=== PATIENT | female | born 1965 | race Hispanic/Latino ===

== ENCOUNTER 2021-08-27 12:44 | Emergency (ER) | payer SELFPAY ==
[2021-08-27 13:07] VITALS: BP 133/87; PULSE 89; RESP 18; TEMP 36.7; O2SAT 99
--- NOTE | 2021-08-27 14:01 | ED.URI ---
HPI - URI/Sore Throat General Chief Complaint: Upper Respiratory Infection Stated Complaint: Cough, Sore throat Time Seen by Provider: 08/27/21 14:01 Source: patient Mode of arrival: ambulatory Limitations: no limitations History of Present Illness HPI Narrative: Dayami Eisenberg is a 55-year-old female with a history of orthopedic type cancer, COPD , GERD, who has had symptoms for over a week and states she has subjective fever at night with increased coughing. Patient was told she cannot take the Covid vaccine due to her cancer history Related Data Home Medications Medication Instructions Recorded Confirmed Bentyl 08/27/21 Claritin 08/27/21 Flonase 08/27/21 Prevacid 08/27/21 Spiriva Respimat 08/27/21 Allergies Allergy/AdvReac Type Severity Reaction Status Date / Time No Known Allergies Allergy Verified 08/27/21 13:28 Review of Systems Review of Systems: CONSTITUTIONAL: Denies fever, chills, sweats. EYES: Denies visual changes, redness, discharge. ENT: Has rhinorrhea, has congestion, has sore throat, otalgia. Sore on right side of tongue CARDIOVASCULAR: Denies chest pain, palpitations, edema. RESPIRATORY: Denies dyspnea, wheezing, has cough GASTROINTESTINAL: Denies abdominal pain, nausea, vomiting, diarrhea. GENITOURINARY: Denies dysuria, hematuria, abnormal discharge SKIN: Denies rash or itching. NEUROLOGIC: Denies numbness, or focal weakness. PSYCHIATRIC: Denies anxiety or depression. PMFSH Past Medical History Medical History Cancer Social History Social History (Updated 08/27/21 @ 14:16 by Maricel Llamas CNP) Smoking status: Never smoker Alcohol intake: never Comments At time of signature, I agree with nursing past medical, surgical, social and family history. There is no relevant family history pertinent to the presenting complaint. Exam Narrative: GENERAL: This is a well-nourished, well-developed patient, in mild distress. HEAD: normocephalic, atraumatic. EYES: . Sclera clear/white. Vision is grossly intact. EARS: External ears normal, auditory canals clear and without drainage, TMs normal without perforation. Hearing grossly intact. NOSE: External nose normal without nasal discharge, nares without redness, no rhinorrhea. THROAT: Mucous membranes moist, posterior pharynx mild erythema with clear drainage NECK: Neck supple, non-tender CARDIOVASCULAR: Regular rate and rhythm without murmurs, gallops, or rubs. RESPIRATORY: Clear to auscultation. Breath sounds equal bilaterally. No wheezes, rales, or rhonchi. GASTROINTESTINAL: Abdomen soft, SKIN: warm, intact with no suspicious lesions or rash, good texture and turgor. NEURO: awake, alert, and oriented to person, place and time. There were no obvious focal neurologic abnormalities. Steady gait EXTREMITIES: Normal range of motion. BACK: Nontender without deformity Course Course Emergency Course: Patient here with cough and subjective fever mostly at night; states that she has been ill for a week but in general is getting a little bit better Started on lidocaine for aphthous ulcer of tongue, Gladis Escamilla, Hoang, Sudafed, Vital Signs Vital signs: Vital Signs Temperature 98.1 F 08/27/21 13:07 Pulse Rate 89 08/27/21 13:07 Respiratory Rate 18 08/27/21 13:07 Blood Pressure 133/87 08/27/21 13:07 Pulse Oximetry 99 08/27/21 13:07 Temperature 98.1 F 08/27/21 13:07 Pulse Rate 89 08/27/21 13:07 Respiratory Rate 18 08/27/21 13:07 Blood Pressure 133/87 08/27/21 13:07 Pulse Oximetry 99 08/27/21 13:07 MDM - URI/Sore Throat Differential Diagnosis Differential diagnosis: Likely upper respiratory infection Discharge Plan Discharge Clinical Impression: Upper respiratory infection Qualifiers: URI type: unspecified URI Qualified Code(s): J06.9 - Acute upper respiratory infection, unspecified Patient Disposition: Home, Self-Ca
== END 2021-08-27 14:30 | disposition home or self-care (01) ==
PROVIDERS: Emergency Provider Nurse Practitioner
DX: J06.9 Acute upper respiratory infection, unspecified (principal); J44.9 Chronic obstructive pulmonary disease, unspecified; Z85.89 Personal history of malignant neoplasm of other organs and systems
CPT/HCPCS: 99203; G0463

== ENCOUNTER 2023-03-01 13:59 | Emergency (ER) | payer OTHER, SELFPAY ==
--- NOTE | ~2023-03-01 | CT_ITS ---
EXAMINATION: CT abdomen pelvis wo con DATE: 03/01/2023 16:13 INDICATION: Left flank pain and hematuria TECHNIQUE: Computed tomography (CT) of the abdomen and pelvis was performed without intravenous contr ast. Automated exposure control and iterative reconstruction technique were employed. The dose-length product was 400.27 mGy-cm. COMPARISON: None FINDINGS: Severe emphysema at the bilateral lung bases with large bulla extending across essentially entire rig ht hemidiaphragm. Heart size is normal. No pericardial or pleural effusion. Diffuse hepatic steatosis . Gallbladder, spleen, pancreas and bilateral adrenal glands are normal. Kidneys and ureters are norm al with no urolithiasis, hydroureteronephrosis or perinephric/ureteral stranding. The bowels includin g the appendix are normal. Bladder, anteverted uterus and bilateral adnexa are unremarkable. No free intraperitoneal gas or fluid. No pathologically enlarged abdominal or pelvic lymphadenopathy. 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 IMPRESSION: 1. Normal kidneys and ureters with no urolithiasis or other etiology for reported left flank pain and hematuria. 2. Severe emphysematous at the bilateral lung bases which raises possibility of alpha-1 antitrypsin d eficiency. 3. Diffuse hepatic steatosis. Reviewed, dictated and finalized at location A. IMPRESSION: 1. Normal kidneys and ureters with no urolithiasis or other etiology for report ed left flank pain and hematuria. 2. Severe emphysematous at the bilateral lung bases which raises possibility of alpha-1 antitrypsin deficiency. 3. Diffuse hepatic steatosis.
[2023-03-01 14:28] VITALS: BP 143/88; PULSE 97; RESP 16; TEMP 36.5; O2SAT 97
[2023-03-01 15:03] LABS: Appearance Urine Clear (Clear); Bacteria Urine None Seen /hpf; Bilirubin Urine Negative (Negative); Blood Urine Trace (Negative); Color Urine Yellow (Yellow); Glucose Urine UA Negative (Negative); Ketones Urine Negative (Negative); Leukocyte Esterase Ur Trace LEU/UL (Negative); Need Manual Microscopic Reviewed; Nitrate Urine Negative (Negative); Non Pathogenic Casts 0-2; Protein Urine Negative (Negative); Specific Grav Ur 1.004 (1.001-1.035); Squamous Epithelial Cell Urine None seen /hpf (Few); Urobilinogen Urine 0.2 mg/dL (<2.0); WBC Urine 0-5 /hpf; pH Urine 6.5 (5.0-9.0)
[2023-03-01 15:04] LABS: Add Urine Microscopic? YES
--- NOTE | 2023-03-01 15:38 | ED.BACK ---
HPI - Back Pain/Injury General Chief Complaint: Back Pain/Injury Stated Complaint: back pain Time Seen by Provider: 03/01/23 15:06 History of Present Illness HPI Narrative: Patient is a 57-year-old female presenting with left flank pain. Patient states that for the last 2 days she has had left side and flank pain. States that she has never had pain like this before. She denies chest or abdominal pain. No nausea or vomiting. She does complain of some diarrhea. No dysuria or hematuria. No fevers or chills. Denies further complaints. Patient is [place]-speaking and her son is at bedside for interpretation. Formal hourly sign language interpreter was offered but she declined. Related Data Home Medications Medication Instructions Recorded Confirmed Bentyl 08/27/21 Claritin 08/27/21 Flonase 08/27/21 Prevacid 08/27/21 Spiriva Respimat 08/27/21 Allergies Allergy/AdvReac Type Severity Reaction Status Date / Time No Known Allergies Allergy Verified 03/01/23 14:52 Review of Systems Review of Systems: All systems reviewed & are unremarkable except as noted in HPI and below PMFSH Past Medical History Medical History Cancer Social History Social History Smoking status: Never smoker Alcohol intake: never Exam Narrative: GENERAL: Well-appearing, well-nourished, and in no acute distress. Pleasant and cooperative HEAD: Normocephalic, atraumatic. EYES: PERRLA and EOMI. ENT: Nares clear, no rhinorrhea or epistaxis. Mucous membranes moist. NECK: Supple. CHEST: Clear to auscultation. No respiratory distress. HEART: Regular rate and rhythm. No murmur heard. Normal peripheral pulses. ABDOMEN: Soft, nontender, nondistended, + left CVA tenderness EXTREMITIES: Normal range of motion. No edema. SKIN: Warm, dry, no rash. NEURO: No focal deficits. Alert and oriented x3. PSYCH: Normal mood and affect. Course Vital Signs Vital signs: Vital Signs Temperature 97.7 F 03/01/23 14:28 Pulse Rate 97 03/01/23 14:28 Respiratory Rate 16 03/01/23 14:28 Blood Pressure 143/88 H 03/01/23 14:28 Pulse Oximetry 97 03/01/23 14:28 Oxygen Delivery Room Air 03/01/23 14:28 Temperature 97.7 F 03/01/23 14:28 Pulse Rate 97 03/01/23 14:28 Respiratory Rate 16 03/01/23 14:28 Blood Pressure 143/88 H 03/01/23 14:28 Pulse Oximetry 97 03/01/23 14:28 Oxygen Delivery Room Air 03/01/23 14:28 MDM - Back Pain/Injury MDM Narrative Medical decision making narrative: Patient is a 57-year-old female presenting with left flank pain for the last several days. Vitals are within normal limits. Exam remarkable for the above. UA does show a few RBCs. She does have left flank tenderness. Will obtain blood work, CT Noncon. Blood work is unremarkable. CT reveals no acute abnormalities. There is evidence of hepatic steatosis as well as severe emphysematous changes involving her bilateral lung bases. Patient states that she has a history of lung disease and she follows with a specialist for this. On reevaluation, the patient states all of her pain is resolved. Discussed the reassuring work-up. We will start her on Pepcid for possible gastritis/esophagitis. Advised Tylenol for additional pain control. Advised that she follow-up closely with her PCP. Appropriate return precautions given. Patient voiced understanding and is agreeable with plan. Discharged in stable condition. Differential Diagnosis Differential diagnosis: Likely renal colic and other (Flank pain, ureterolithiasis, gastritis, esophagitis, musculoskeletal pain) Medical Records Attestation: I reviewed the patient's medical records. Lab Data Attestation: I reviewed the patient's lab results. 03/01/23 15:58 03/01/23 15:58 Labs: Lab Results 03/01/23 03/01/23 Range/Units 14:50 15:58 WBC 6.2 (4.5-
[2023-03-01 16:08] LABS: Basophils Percent Auto 0.5 % (0.2-1.2); Eosinophils Absolute Auto 0.1 K/mm3 (0-0.3); Eosinophils Percent Auto 1.5 % (0-4.4); Hematocrit 43.2 % (37.0-47.0); Hemoglobin 13.5 g/dL (12.0-15.0); Immature Granulocyte Absolute 0.02 K/mm3 (0.00-0.031); Immature Granulocyte Percent A 0.3 % (0-0.5); Lymphocytes Absolute Auto 1.23 K/mm3 (0.9-3.2); Mean Corpuscular HGB Conc 31.3 g/dl (32-36); Mean Corpuscular Hemoglobin 23.6 pg (26-34); Mean Corpuscular Volume 75.4 fl (80-100); Mean Platelet Volume 11.3 fl (7.4-10.4); Monocytes Absolute Auto 0.4 K/mm3 (0.1-0.6); Monocytes Percent Auto 5.7 % (2.6-8.5); Neutrophils Absolute Auto 4.4 K/mm3 (1.3-6.7); Platelet Count Result 209 k/mm3 (150-375); Red Blood Count 5.73 M/mm3 (4.2-5.4); Red Cell Distribution Width 16.9 % (11.5-14.5); White Blood Count 6.2 K/mm3 (4.5-10.0)
[2023-03-01] MEDS: FAMOTIDINE 20 MG/2 ML VIAL IV PUSH (16:18)
[2023-03-01] MEDS: SODIUM CHLORIDE 0.9% IV 1,000 ML 999 ML IV CONT (16:18)
[2023-03-01] MEDS: ACETAMINOPHEN 500 MG TABLET 1000 MG PO (16:18)
[2023-03-01 16:19] LABS: Alanine Aminotransferase 30 U/L (6-35); Albumin Level 4.8 g/dL (3.5-5.1); Alkaline Phosphatase 105 U/L (38-126); Anion Gap 8 mmol/L (8-16); Aspartate Amino Transferase 32 U/L (14-36); Bilirubin,Total 0.3 mg/dL (0.2-1.3); Blood Urea Nitrogen 6 mg/dL (7-17); Calcium 9.2 mg/dL (8.4-10.2); Carbon Dioxide 27 mmol/L (22-30); Chloride 105 mmol/L (98-107); Estimated CRCL calculation 105 ml/min; Estimated Glomerular Filt Rate > 60; Glucose 99 mg/dL (65-110); Lipase 73 U/L (23-300); Potassium 3.9 mmol/L (3.4-5.0); Sodium 140 mmol/L (137-145)
== END 2023-03-01 17:56 | disposition home or self-care (01) ==
PROVIDERS: Emergency Provider Emergency Medicine; PCP Registered Nurse
DX: R10.9 Unspecified abdominal pain (principal); J43.9 Emphysema, unspecified; K76.0 Fatty (change of) liver, not elsewhere classified; Z85.9 Personal history of malignant neoplasm, unspecified
CPT/HCPCS: 36415; 74176; 80053; 81001; 83690; 85025; 96361; 96374; 99284; A9270; J7030

== ENCOUNTER 2023-11-06 14:13 | Emergency (ER) | payer OTHER, SELFPAY ==
[2023-11-06 14:22] VITALS: BP 153/88; PULSE 115; RESP 18; TEMP 37; O2SAT 100
[2023-11-06 14:27] VITALS: BP 153/88; PULSE 115; RESP 18; TEMP 37; O2SAT 100
--- NOTE | 2023-11-06 14:29 | ED.DENTAL ---
HPI - Dental/Oral General Chief complaint: Dental/Oral Stated complaint: Right Side Face Swelling Time Seen by Provider: 11/06/23 14:29 Source: patient Mode of arrival: ambulatory History of Present Illness HPI Narrative: 58 y/o female presented for c/o right upper dental pain and swelling x4 days. States the bump around the tooth is getting bigger with swelling to the cheek. Endorses a broken tooth to the site. Has been doing chemo for sarcoma, and has not been to a dentist for a long time, but plans to get the tooth extracted. Denies n/v/d/f/c. Taking Tylenol. MD Complaint: tooth pain Related Data Home Medications Medication Instructions Recorded Confirmed Bentyl 10 mg PO TID 08/27/21 11/06/23 Claritin 10 mg PO DAILY 08/27/21 11/06/23 Flonase 2 spray EACH NARE DAILY 08/27/21 11/06/23 Prevacid 40 mg PO DAILY 08/27/21 11/06/23 Spiriva Respimat 2 puff inhalation DAILY 08/27/21 11/06/23 albuterol sulfate 90 mcg/actuation 2 puff inhalation Q4-6H 11/06/23 11/06/23 aerosol inhaler cyclobenzaprine 10 mg tablet 10 mg PO TID 11/06/23 11/06/23 lansoprazole 30 mg capsule,delayed 30 mg PO DAILY 11/06/23 11/06/23 release mupirocin 2 % topical ointment 1 applic topical BID 11/06/23 11/06/23 Allergies Allergy/AdvReac Type Severity Reaction Status Date / Time Influenza Virus Vaccines Allergy Hives Verified 11/06/23 14:32 Review of Systems Review of Systems: CONSTITUTIONAL: Denies body aches, fever, chills ENT: Denies rhinorrhea, congestion, sore throat, or otalgia. Reports dental pain CARDIOVASCULAR: Denies chest pain, palpitations RESPIRATORY: Denies cough or dyspnea. SKIN: Denies rash, itching, or wounds. MUSCULOSKELETAL: Denies myalgia. NEUROLOGIC: Denies headache, numbness, tingling, or weakness. PMFSH Past Medical History Medical History Cancer Social History Social History (Reviewed 03/07/24 @ 14:40 by GABBY Coffey Smoking status: Never smoker Alcohol intake: never Comments At time of signature, I have reviewed and agree with nursing past medical, surgical, social and family history unless otherwise noted. Please see nursing chart for further information. There is no relevant family history pertinent to the presenting complaint Exam Narrative: GENERAL: Appears in pain; no acute distress. HEAD: Normocephalic, atraumatic. EYES: EOMI. No redness or drainage. Conjunctivae normal. ENT: Dental pain location of #4; abscess noted to lateral aspect of gum, broken tooth, poor dentition throughout. Mild swelling to right cheek. Mucous membranes pink and moist. No uvular deviation or soft palate edema. TMs normal bilaterally. Throat normal. Uvula midline. NECK: Normal AROM. No lymphadenopathy. no induration below mandible, no neck pain. CHEST: No respiratory distress. Clear to auscultation. HEART: Regular rate and rhythm. No murmur appreciated. SKIN: Warm, dry, no rash. Normal skin turgor. NEURO: No focal deficits. Alert and oriented x3. Gait steady. Course Course Emergency Course: Patient is aware of diagnosis, understands and agrees to treatment plan. Anticipatory guidance given. Patient agrees to follow-up as directed and is aware of reasons to seek care at the emergency department. Portions of this record may have been created with voice recognition software Level of Care: Express Care Visit Vital Signs Vital signs: Vital Signs Temperature 98.6 F 11/06/23 14:22 Pulse Rate 115 H 11/06/23 14:22 Respiratory Rate 18 11/06/23 14:22 Blood Pressure 153/88 H 11/06/23 14:22 Pulse Oximetry 100 11/06/23 14:22 Oxygen Delivery Room Air 11/06/23 14:22 Temperature 98.6 F 11/06/23 14:27 Pulse Rate 115 H 11/06/23 14:27 Respiratory Rate 18 11/06/23 14:27 Blood Pressure 153/88 H 11/06/23 14:27 Pulse Oximetry 100 11/06/23 14:27 Oxygen Delivery Room Air 11/06/23 14:27 MDM - Dental/Or
== END 2023-11-06 14:45 | disposition home or self-care (01) ==
PROVIDERS: Emergency Provider Nurse Practitioner Family; PCP Registered Nurse
DX: K04.7 Periapical abscess without sinus (principal); C49.9 Malignant neoplasm of connective and soft tissue, unspecified; Z79.60 Long term (current) use of unspecified immunomodulators and immunosuppressants
CPT/HCPCS: 99213; G0463